=== PATIENT | female | born 1990 | race Two or more races ===

== ENCOUNTER 2020-07-17 13:39 | Emergency (ER) | payer OTHER, SELFPAY ==
--- NOTE | ~2020-07-17 | XR_ITS ---
EXAMINATION: XR CHEST XR STERNUM CLINICAL INFORMATION: 29-year-old with injury, pain COMPARISON: None TECHNIQUE: Frontal view chest obtained along with 3 views of the sternum. There are a total of 4 views. Patient shielded for imaging. FINDINGS: The lungs are clear. There is no pneumothorax, pleural reaction, airspace opacity, or effusion. The costophrenic sulci are clear. Heart is upper limits of normal size. The hilar and mediastinal contours and visualized bony structures are unremarkable. Additional views of the sternum demonstrate probable unfused lower sternal segment, within 2.5 cm upper xiphoid. Margins appear likely corticated and are in normal alignment. If patient is focally tender in this area, further assessment could be performed with computed tomography. There is no visible sternal fracture, destructive process, or definite substernal soft tissues swelling. XR/XR sternum min 2V IMPRESSION: 1. Lungs clear. No pneumothorax, pleural reaction, or effusion. 2. Probable unfused lower sternal segment on lateral view. If patient is focally symptomatic at this site, further assessment could be performed with computed tomography.
--- NOTE | ~2020-07-17 | XR_ITS ---
EXAMINATION: XR CHEST XR STERNUM CLINICAL INFORMATION: 29-year-old with injury, pain COMPARISON: None TECHNIQUE: Frontal view chest obtained along with 3 views of the sternum. There are a total of 4 views. Patient shielded for imaging. FINDINGS: The lungs are clear. There is no pneumothorax, pleural reaction, airspace opacity, or effusion. The costophrenic sulci are clear. Heart is upper limits of normal size. The hilar and mediastinal contours and visualized bony structures are unremarkable. Additional views of the sternum demonstrate probable unfused lower sternal segment, within 2.5 cm upper xiphoid. Margins appear likely corticated and are in normal alignment. If patient is focally tender in this area, further assessment could be performed with computed tomography. There is no visible sternal fracture, destructive process, or definite substernal soft tissues swelling. XR/XR chest 1V IMPRESSION: 1. Lungs clear. No pneumothorax, pleural reaction, or effusion. 2. Probable unfused lower sternal segment on lateral view. If patient is focally symptomatic at this site, further assessment could be performed with computed tomography.
[2020-07-17 13:53] VITALS: BP 120/83; BP 134/86; PULSE 79; PULSE 92; RESP 16; TEMP 36.5; O2SAT 99; BMI 36.3
--- NOTE | 2020-07-17 14:14 | ED.GENADULT ---
HPI - General Adult General Chief complaint: General Medical Stated complaint: CHEST PAIN FROM AC TO CHEST Time Seen by Provider: 07/17/20 14:14 History of Present Illness HPI narrative: Patient complains of pain in chest wall after she tripped carrying an air conditioner in the air conditioner hit her in the upper chest, no difficulty breathing Patient also complains of some pain in her lower back, the air conditioner did not hit her in the back, no numbness weakness or tingling, no exertional symptoms Related Data Previous Rx's Medication Instructions Recorded fluticasone propionate 50 1 spray INTRANASAL DAILY 30 Days 01/30/20 mcg/actuation nasal #9.9 ml spray,suspension loratadine 10 mg tablet 10 mg PO DAILY 30 Days #30 tab 01/30/20 sennosides 8.6 mg capsule 8.6 mg PO BEDTIME 30 Days #30 cap 01/30/20 acetaminophen 1,000 mg PO QID PRN #30 tab 07/17/20 ibuprofen 600 mg PO Q6H PRN #20 tab 07/17/20 Allergies Allergy/AdvReac Type Severity Reaction Status Date / Time No Known Allergies Allergy Verified 01/30/20 14:27 Review of Systems Review of Systems: Positive for chest wall pain and low back pain Negatives are no fever no chills no dizziness or weakness no fainting no feeling faint no headache no neck pain no exertional symptoms no shortness of breath no palpitations no abdominal pain no nausea vomiting or diarrhea and no leg swelling no calf pain no numbness weakness or tingling no changes to bowel or bladder no incontinence no dysuria no rash Yes all other systems are reviewed and are negative PMFSH Past Medical History Source: nursing notes reviewed Surgical History History of section History of tubal ligation Family History Family History Father No problems noted. Mother Diabetes Hypertension Stroke Maternal Grandmother No problems noted. Maternal Grandfather No problems noted. Paternal Grandmother No problems noted. Paternal Grandfather No problems noted. Social History Social History (Updated 01/30/20 @ 14:33 by Niko Garcia PA-C) Alcohol intake: never Advance Directives: No Advance Directives Information Provided: No Patient : No Physical Exam Vital Signs: Vital Signs: Last Vital Signs Temp 97.7 F 07/17/20 13:53 Pulse 79 07/17/20 13:53 Resp 16 07/17/20 13:53 BP 134/86 07/17/20 13:53 Pulse Ox 99 07/17/20 13:53 Body Mass Index 36.3 General appearance no acute distress The head is normocephalic atraumatic Neck supple nontender The chest there is some tenderness to the chest wall in the anterior chest, there is no ecchymosis or laceration, respiratory no distress The chest is clear to auscultation bilateral with symmetric equal breath sounds Heart no murmur The back there is some mild lower lumbar paraspinal tenderness worse with bending but range of motion is good, no CVA tenderness no focal bony tenderness, skin is normal Extremities full range of motion x4 Neuro no gross motor or sensory deficit Course Course Course Narrative: Chest x-ray was normal and pain in both back and chest are consistent with musculoskeletal pain Medical Decision Making Lab Data Labs: Lab Results 07/17/20 Range/Units 14:55 Urine Test NEGATIVE (NEGATIVE) Discharge Plan Discharge Clinical Impression: Contusion of chest wall, Back strain Patient Disposition: Home, Self-Care Additional Instructions: X-ray did not show any broken bone or punctured lung or any dangerous condition Your back exam did not show any concern for broken bones and is most likely a strained muscle Return any time any worse condition or any concerns Follow with primary doctor if needed for physical therapy or repeat evaluation Prescriptions: New acetaminophen 500 mg tablet 1,000 mg PO QID PRN (Reason: pain) Qty: 30 RF: 0 ibuprofen 600 mg tablet 600 mg PO Q6H PRN (Reason: pain) Qty: 20 RF: 0 No Action senna 8.6 mg capsule 8.6 mg PO BEDTIME 30 Days Qty: 30 RF: 3 fluticasone propionate 50 mcg/actuation spray,suspension 1 spray intranasal DAILY 30 Days Qty: 9.9 RF: 1 loratadine 10 mg tablet 10 mg PO DAILY 30 Days Qty: 30 RF: 1 Interventions: ED Discharge Assessment Last Done: 07/17/20 15:45 Discharge Date/Time: 07/17/20 15:45
[2020-07-17 15:12] LABS: UPreg QC Valid YES; Urine Pregnancy NEGATIVE (NEGATIVE)
--- NOTE | 2020-07-17 15:45 | PC.NURSE ---
AMBULATORY WITH STEADY GAIT AT TIME OF DC
== END 2020-07-17 15:45 | disposition home or self-care (01) ==
PROVIDERS: Physician Assistant Medical; Emergency Provider Emergency Medicine; PCP Internal Medicine
DX: S20.219A Contusion of unspecified front wall of thorax, initial encounter (principal); S39.012A Strain of muscle, fascia and tendon of lower back, initial encounter; W22.01XA Walked into wall, initial encounter; Y93.89 Activity, other specified; Y92.039 Unspecified place in apartment as the place of occurrence of the external cause; Y99.9 Unspecified external cause status
CPT/HCPCS: 71045; 71120; 81025; 99283

== ENCOUNTER → 2021-10-21 12:12 | Outpatient (BNVA) | payer OTHER, SELFPAY | PROVIDERS: PCP Internal Medicine; Visit Provider Dietitian, Registered | DX: E66.9 Obesity, unspecified (principal); Z68.37 Body mass index [BMI] 37.0-37.9, adult | CPT/HCPCS: 97802 ==

== ENCOUNTER → 2021-12-23 11:45 | Outpatient (BNVA) | payer OTHER, SELFPAY | PROVIDERS: PCP Internal Medicine; Visit Provider Dietitian, Registered | DX: E66.9 Obesity, unspecified (principal) | CPT/HCPCS: 97803 ==

== ENCOUNTER 2022-09-08 14:16 | Outpatient (AMB) | payer OTHER, SELFPAY ==
--- NOTE | 2022-09-08 14:18 | MHC.PC.OV ---
Vital Signs 09/08/22 14:19 Height 5 ft 3 in Weight 208 lb BMI 36.8 BP 136/80 Blood Pressure Location Lt brachial Position Sitting Intake Visit Reasons: Annual Exam Intake Note: Patient here for an annual physical exam Property Loss Insurance Claim Adjuster Required: No Accompanied by: Self / Same As Patient Allergies No Known Allergies Allergy (Verified 09/08/22 14:29) Medication List - Last Reconciled 09/08/22 by Lizette Valdez MD No Known Home Meds Tobacco use date assessed: 09/08/22 Dental Screening Dental Screen Date: 09/08/22 Did you have a dental visit in the last 12 months?: No Did you have a dental problem in the last 6 months where you did not have access to dental care?: No Was dental information given to patient?: No HPI HPI Comments History of Present Illness Details This is a 31-year-old female that comes for her physical exam. She has not had a Pap smear in over 3 years as per patient. She is obese with a BMI of 36.8 and would like to follow with weight management. No chest pain or shortness of breath. No change in bowel or bladder habits. [facility] Medical History (Updated 09/08/22 @ 14:37 by Lizette Valdez MD) Sinusitis Surgical History History of section History of tubal ligation Family History Father CAD (coronary artery disease) Mother Diabetes Hypertension Stroke CAD (coronary artery disease) Maternal Grandmother No problems noted. Maternal Grandfather No problems noted. Paternal Grandmother No problems noted. Paternal Grandfather No problems noted. Social History Housing: Apartment Alcohol intake: never Patient Tobacco Use Status: Never used Tobacco e-Cigarette/Vaping Use: Never Used Second Hand Smoke Exposure: No service: No Current occupational status: unemployed Cognitive needs: No Hearing needs: No Vision needs: Yes (reading glasses) Questionnaire PHQ-9 Over the last 2 weeks, how often have you been bothered by any of the following problems? 1. Little interest or pleasure in doing things: not at all 2. Feeling down, depressed, or hopeless: not at all 3. Trouble falling or staying asleep, or sleeping too much: not at all 4. Feeling tired or having little energy: not at all 5. Poor appetite or overeating: not at all 6. Feeling bad about yourself - or that you are a failure or have let yourself or your family down: not at all 7. Trouble concentrating on things, such as reading the newspaper or watching television: not at all 8. Moving or speaking so slowly that other people could have noticed. Or the opposite - being so fidgety or restless that you have been moving around a lot more than usual: not at all 9. Thoughts that you would be better off or of hurting yourself in some way: not at all Total score: 0 Depression Screening Interpretation: Negative 53704 - PHQ-9 Billing: Yes Source: Developed by Drs. Madhu Whiteside, Sara Martinez, David Rice and colleagues, with an educational mary anne from [employer]. Thrive Questionnaire Date Thrive assessed: 09/08/22 I am a: Patient What is your living situation today?: I have a steady place to live Within the past 12 months, did the food you bought not last and you didn't have the money to get more?: Never true Within the past 12 months, did you worry whether your food would run out before you got money to buy more?: Never true Do you have trouble paying for medicines?: No Do you have trouble getting transportation to medical appointments?: No Do you have trouble paying your heating and electricity bill?: No Do you have trouble taking care of your child, family member or friend?: No Do you have trouble with day-to-day activities such as bathing, preparing meals, shopping, managing finances, etc.?: No Are you currently unemployed and looking for a job?: No Are you interested in more education?: No Please select the resources that you would like help with: None Currently or been in a relationship where the following occur: no concerns reported AUDIT C Alcohol Use Questionnaire (AUDIT-C) 1. How often do you have a drink containing alcohol?: Never Total Score: 0 SAWYER-7 AMB Questionnaire SAWYER-7 Date SAWYER - 7 assessed: 09/08/22 Feeling nervous, anxious, or on edge: 0 = Not at all Not being able to stop or control worryin = Not at all Worrying too much about different things: 0 = Not at all Trouble relaxin = Not at all Being so restless that it is hard to sit still: 0 = Not at all Becoming easily annoyed or irritable: 0 = Not at all Feeling afraid as if something awful might happen: 0 = Not at all Total SAWYER-7 score (0-4 normal; 5-9 mild; 10-14 moderate; 15-21 severe): 0 Source: Developed by Drs. Madhu Whiteside, Sara Martinez, David Rice and colleagues, with an educational mary anne from [employer]. SAWYER-7 Assessment Billing SAWYER-7 Assessment Tool: SAWYER-7 Assessment 53715 Review of Systems Const All systems reviewed & are unremarkable except as noted in HPI and below Eyes Reports no additional complaints, Denies change in vision and Denies other visual disturbances Card Denies chest pain at rest, Denies chest pain with activity, Denies edema, Denies irregular heart rhythm, Denies claudication, Denies dyspnea, Denies dyspnea on exertion, Denies orthopnea, Denies paroxysmal nocturnal dyspnea and Denies slow heart rate Resp Denies cough, Denies dyspnea and Denies dyspnea on exertion GI Denies abdominal pain, Denies change in bowel habits, Denies excessive flatus, Denies nausea and Denies vomiting Denies urinary incontinence, Denies urinary hesitancy and Denies urinary urgency Musc Denies abnormal gait, Denies atrophy, Denies deformity and Denies limited range of motion Skin/Breast Denies bleeding lesions, Denies changing lesions and Denies rash Neuro Denies abnormal gait and Denies lack of coordination Physical exam (Primary Care) Vital Signs: Last Vital Signs BP 136/80 09/08/22 14:19 BMI result Body Mass Index 36.8 Tobacco/Smoking Status: Tobacco use Status Tobacco use date assessed 09/08/22 09/08/22 14:25 Patient Tobacco Use Status Never used Tobacco 09/08/22 14:25 e-Cigarette/Vaping Use Never Used 09/08/22 14:25 PHQ-9: PHQ-9 Score PHQ-9: Total score 0 09/08/22 14:32 Depression Screening Interpretation: Negative Thrive Assessment: Date of Thrive Assessment Date Thrive assessed 09/08/22 09/08/22 14:25 Currently or been in a relationship where the following occur: no concerns reported Const Orientation/consciousness: patient oriented x3 [facility] Head: Yes normal to inspection, Yes normocephalic and Yes atraumatic Ears: external ears normal Eyes General: appearance normal, both eyes and all related structures Eyelids: Yes eyelids normal Conjunctivae: conjunctivae normal Neck Neck: Yes normal visual inspection and Yes supple Resp Effort & Inspection: normal respiratory effort Auscultation: clear to auscultation bilaterally Cardio Jugular venous distension: no JVD Rate: regular rate Rhythm: regular rhythm Heart sounds: S1 normal heart sound present and S2 normal heart sound present GI Inspection: Yes normal to inspection Palpation (GI): Soft to palpation and nontender Auscultation: normal bowel sounds Skin General skin exam: no rashes or lesions noted Neuro General: patient oriented x3 and no focal motor deficits Extrem General: Yes full ROM Psych Appearance: grossly normal Assessment and Plan Assessment & Plan (1) Annual physical exam: Code(s): Z00.00 - Encounter for general adult medical examination without abnormal findings Plan: Repeat in a year Orders: Orders Comprehensive [place]. Panel Fast Today Z00.00 - Encounter for general adult medical examination without abnormal findings Lipid Panel Today E78.5 - Hyperlipidemia, unspecified, Z00.00 - Encounter for general adult medical examination without abnormal findings Thyroid Stimulating Hormone Today E66.9 - Obesity, unspecified Complete Blood Count Auto Diff Today D64.9 - Anemia, unspecified, E66.9 - Obesity, unspecified Referrals Medical Weight Management Referral E66.9 - Obesity, unspecified [employer] ARCHITECT Referral Z12.4 - Encounter for screening for malignant neoplasm of cervix Coding Level of Care Code Est Pt Prev Care 18-39y(22005) Diagnoses Annual physical exam Z00.00 Additional Codes SAWYER-7 Assessment Billing - SAWYER-7 Assessment Tool: SAWYER-7 Assessment 57148 ([id number]) Time Spent (min) 31
[2022-09-08 14:19] VITALS: BP 136/80; BMI 36.8
== END 2022-09-08 14:40 | disposition home or self-care (01) ==
PROVIDERS: PCP Internal Medicine; Visit Provider Internal Medicine
DX: Z00.00 Encounter for general adult medical examination without abnormal findings (principal)
CPT/HCPCS: 99395

== ENCOUNTER 2023-09-13 10:04 | Outpatient (AMB) | payer OTHER, SELFPAY ==
--- NOTE | 2023-09-13 10:15 | MHC.PC.OV ---
Vital Signs 09/13/23 10:18 Height 5 ft 3 in Weight 217 lb BMI 38.4 BP 118/80 Blood Pressure Location Lt brachial Position Sitting Intake Visit Reasons: Annual exam Intake Note: Patient here for an annual physical exam Dental Hygienist Required: No Accompanied by: Self / Same As Patient Allergies No Known Allergies Allergy (Verified 09/13/23 10:27) Medication List - Last Reconciled 09/13/23 by Lizette Valdez MD No Known Home Meds Tobacco use date assessed: 09/13/23 Dental Screening Dental Screen Date: 09/13/23 Did you have a dental visit in the last 12 months?: No Did you have a dental problem in the last 6 months where you did not have access to dental care?: No Was dental information given to patient?: Patient declined HPI HPI Comments History of Present Illness Details This is a 32-year-old female that comes for her physical exam. Last Pap smear was 2015 and will be referred to OBGYN for this matter. She is obese with a BMI of 38.4 and has tried diet and exercise with no improvement. Was seen by a film splicer at some point. I will start her on [employer] insurance approves. Denies any acute complaints. [facility] Medical History (Updated 09/13/23 @ 10:32 by Lizette Valdez MD) Sinusitis Surgical History History of tubal ligation History of section Family History Father CAD (coronary artery disease) Mother Diabetes Hypertension Stroke CAD (coronary artery disease) Maternal Grandmother No problems noted. Maternal Grandfather No problems noted. Paternal Grandmother No problems noted. Paternal Grandfather No problems noted. Social History Housing: Apartment Alcohol intake: never Patient Tobacco Use Status: Never used Tobacco e-Cigarette/Vaping Use: Never Used Second Hand Smoke Exposure: No service: No Current occupational status: unemployed Cognitive needs: No Hearing needs: No Vision needs: Yes (reading glasses) Questionnaire PHQ-9 Over the last 2 weeks, how often have you been bothered by any of the following problems? 1. Little interest or pleasure in doing things: not at all 2. Feeling down, depressed, or hopeless: not at all 3. Trouble falling or staying asleep, or sleeping too much: not at all 4. Feeling tired or having little energy: not at all 5. Poor appetite or overeating: not at all 6. Feeling bad about yourself - or that you are a failure or have let yourself or your family down: not at all 7. Trouble concentrating on things, such as reading the newspaper or watching television: not at all 8. Moving or speaking so slowly that other people could have noticed. Or the opposite - being so fidgety or restless that you have been moving around a lot more than usual: not at all 9. Thoughts that you would be better off or of hurting yourself in some way: not at all Total score: 0 Depression Screening Interpretation: Negative Depression Screening Done: Yes 59447 - PHQ-9 Billing: Yes Source: Developed by Drs. Madhu Whiteside, Sara Martinez, David Rice and colleagues, with an educational mary anne from [employer]. Thrive Questionnaire Date Thrive assessed: 09/13/23 I am a: Patient What is your living situation today?: I have a steady place to live Within the past 12 months, did the food you bought not last and you didn't have the money to get more?: Never true Within the past 12 months, did you worry whether your food would run out before you got money to buy more?: Never true Do you have trouble paying for medicines?: No Do you have trouble getting transportation to medical appointments?: No Do you have trouble paying your heating and electricity bill?: No Do you have trouble taking care of your child, family member or friend?: No Do you have trouble with day-to-day activities such as bathing, preparing meals, shopping, managing finances, etc.?: No Are you currently unemployed and looking for a job?: No Are you interested in more education?: No Please select the resources that you would like help with: None Currently or been in a relationship where the following occur: No concerns reported THRIVE Score: 0 AUDIT C Alcohol Use Questionnaire (AUDIT-C) 1. How often do you have a drink containing alcohol?: Never Total Score: 0 Score Reviewed/Action Taken: No SAWYER-7 AMB Questionnaire SAWYER-7 Date SAWYER - 7 assessed: 09/13/23 Feeling nervous, anxious, or on edge: 1 = Several days Not being able to stop or control worryin = Not at all Worrying too much about different things: 0 = Not at all Trouble relaxin = Not at all Being so restless that it is hard to sit still: 0 = Not at all Becoming easily annoyed or irritable: 0 = Not at all Feeling afraid as if something awful might happen: 0 = Not at all Total SAWYER-7 score (0-4 normal; 5-9 mild; 10-14 moderate; 15-21 severe): 1 Source: Developed by Drs. Madhu Whiteside, Sara Martinez, David Rice and colleagues, with an educational mary anne from [employer]. SAWYER-7 Assessment Billing SAWYER-7 Assessment Tool: SAWYER-7 Assessment 25228 Review of Systems Const All systems reviewed & are unremarkable except as noted in HPI and below Card Denies chest pain at rest, Denies chest pain with activity, Denies edema, Denies irregular heart rhythm, Denies claudication, Denies dyspnea, Denies dyspnea on exertion, Denies orthopnea, Denies paroxysmal nocturnal dyspnea and Denies slow heart rate Resp Denies cough, Denies dyspnea and Denies dyspnea on exertion GI Denies abdominal pain, Denies change in bowel habits, Denies excessive flatus, Denies nausea and Denies vomiting Denies urinary incontinence, Denies urinary hesitancy and Denies urinary urgency Musc Denies atrophy, Denies deformity and Denies limited range of motion Skin/Breast Denies bleeding lesions, Denies changing lesions and Denies rash Physical exam (Primary Care) Vital Signs: Last Vital Signs BP 118/80 09/13/23 10:18 BMI result Body Mass Index 38.4 BMI Assessment/Plan discussion: High BMI High, discussed plan: lifestyle, weight reduction, dietary and physical activity Tobacco/Smoking Status: Tobacco use Status Tobacco use date assessed 09/13/23 09/13/23 10:24 Patient Tobacco Use Status Never used Tobacco 09/13/23 10:22 e-Cigarette/Vaping Use Never Used 09/13/23 10:22 PHQ-9: PHQ-9 Score PHQ-9: Total score 0 09/13/23 10:22 Depression Screening Interpretation: Negative Thrive Assessment: Date of Thrive Assessment Date Thrive assessed 09/13/23 09/13/23 10:22 Currently or been in a relationship where the following occur: No concerns reported [facility] Head: Yes normal to inspection, Yes normocephalic and Yes atraumatic Ears: external ears normal Eyes General: appearance normal, both eyes and all related structures Eyelids: Yes eyelids normal Conjunctivae: conjunctivae normal Neck Neck: Yes normal visual inspection and Yes supple Resp Effort & Inspection: normal respiratory effort Auscultation: clear to auscultation bilaterally Cardio Jugular venous distension: no JVD Rate: regular rate Rhythm: regular rhythm Heart sounds: S1 normal heart sound present and S2 normal heart sound present GI Inspection: Yes normal to inspection Palpation (GI): Soft to palpation and nontender Auscultation: normal bowel sounds Skin General skin exam: no rashes or lesions noted Neuro General: no focal motor deficits Extrem General: Yes full ROM Psych Appearance: grossly normal Assessment and Plan Assessment & Plan (1) Physical exam: Code(s): Z00.00 - Encounter for general adult medical examination without abnormal findings Plan: Repeat in a year. Orders: Orders Comprehensive [place]. Panel Fast Today Z00.00 - Encounter for general adult medical examination without abnormal findings Lipid Panel Today Z00.00 - Encounter for general adult medical examination without abnormal findings Referrals STONEWORKER Referral Z12.4 - Encounter for screening for malignant neoplasm of cervix Medications: New semaglutide (weight loss) (Wegovy) administer weeks 1 through 4 of therapy 0.25 mg (0.5 mL) subcut QWEEK 4 weeks 2 mL 0RF E66.9 - Obesity, unspecified Review Patient declined Pneumococcal Vaccine: 09/13/23 Declined TDap/Td: 09/13/23 Coding Level of Care Code Est Pt Prev Care 18-39y(37059) Diagnoses Physical exam Z00.00 Additional Codes SAWYER-7 Assessment Billing - SAWYER-7 Assessment Tool: SAWYER-7 Assessment 35616 ([id number]) Time Spent (min) 30
[2023-09-13 10:18] VITALS: BP 118/80; BMI 38.4
== END 2023-09-13 10:36 | disposition home or self-care (01) ==
PROVIDERS: PCP Internal Medicine; Visit Provider Internal Medicine
DX: Z00.00 Encounter for general adult medical examination without abnormal findings (principal); E66.9 Obesity, unspecified; Z68.38 Body mass index [BMI] 38.0-38.9, adult
CPT/HCPCS: 99395